=== PATIENT | male | born 1960 | race Caucasian/White ===

== ENCOUNTER 2017-02-27 10:20 | Day surgery (SDC) | payer BC ==
[2017-02-25 17:24] LABS: BASOPHILS 0.5 %; BASOPHILS ABSOLUTE 0.04 10/3/uL (0.0-0.16); EOSINOPHILS 1.3 %; HEMATOCRIT 45.7 % (40.0-51.0); HEMOGLOBIN 15.7 g/dL (13.6-17.8); IMMATURE GRANULOCYTES 0.3 %; IMMATURE GRANULOCYTES ABSOLUTE 0.02 10/3/uL (0.0-0.11); LYMPHOCYTES 28.3 %; LYMPHOCYTES ABSOLUTE 2.19 10/3/uL (0.67-4.30); MEAN CORPUS HGB CONC 34.4 g/dL (32.0-36.0); MEAN CORPUSCULAR VOLUME 93.3 fL (80-100); MEAN PLATELET VOLUME 9.4 fL (9.2-13.0); MONOCYTES 8.7 %; MONOCYTES ABSOLUTE 0.67 10/3/uL (0.21-1.20); NEUTROPHILS 60.9 %; NEUTROPHILS ABSOLUTE 4.72 10/3/uL (2.02-8.40); PLATELET COUNT 247 10/3/uL (150-400); RBC DISTRIBUTION WIDTH 13.2 % (12.0-16.0); WHITE BLOOD CELLS 7.7 10/3/uL (4.5-10.5)
[2017-02-25 17:25] LABS: MANUAL DIFF NO %
[2017-02-25 17:40] LABS: A/G RATIO 1.2 (0.7-1.9); ALKALINE PHOSPHATASE 62 U/L (45-117); BUN (BLOOD UREA NITROGEN) 15 MG/DL (6-23); CHLORIDE, SERUM 104 MMOL/L (96-112); CO2 (CARBON DIOXIDE) 28 MMOL/L (24-34); CREATININE 0.86 MG/DL (0.70-1.30); GFR AFRICAN AMERICAN 113 ML/MIN (>=60); GFR NON AFRICAN AMERICAN 98 ML/MIN (>=60); GLOBULIN 3.3 G/DL (2.5-4.1); GLUCOSE, SERUM 137 MG/DL (60-99); POTASSIUM, SERUM 4.3 MMOL/L (3.5-5.3); SGOT(AST) 23 U/L (5-40); SGPT(ALT) 26 U/L (5-65); SODIUM, SERUM 139 MMOL/L (135-148); TOTAL BILIRUBIN 0.5 MG/DL (0-1.2); TOTAL PROTEIN 7.3 G/DL (6.0-8.5)
--- NOTE | ~2017-02-27 | OP ---
Record Of Operation [facility] [address] [place]. [address] NAME: YULIANA DOUGHERTY : 62 STATUS : [facility]#: [id number] AGE: 56 ADM/REG DATE : 02/27/17 MR#: [id number] REPORT SERV DATE: 02/27/17 DICTATED BY: INES WHITTINGTON III DATE: 02/27/17 REPORT STATUS : Draft TRANSCRIBED BY: MODL DATE: 02/27/17 DATE OF PROCEDURE: 02/27/2017 PREOPERATIVE DIAGNOSIS: Malignant melanoma of the right upper back. POSTOPERATIVE DIAGNOSIS: Malignant melanoma of the right upper back. PROCEDURE: Wide local resection of malignant melanoma of right upper back with primary closure of wound. SURGEON: Ines Whittington M.D. ANESTHESIA: General with intubation. COMPLICATIONS: None. ESTIMATED BLOOD LOSS: Less than 5 mL. SPECIMENS: Malignant melanoma from right upper back including skin, subcutaneous tissue, and fascia. DRAINS: None. LAP AND SPONGE COUNT: Correct x3. BRIEF HISTORY: This 56-year-old male was recently found to have a malignant melanoma of the right upper back over the right scapula. This lesion was about 0.17 to 0.18 mm in thickness. It was felt that wide local resection of this malignancy was indicated. This procedure, the risks, benefits, and alternatives, including not limited to the risk for bleeding, infection, pain, swelling, scarring, deformity to the area, seroma formation, hematoma formation, wound dehiscence, nerve injury, chronic paresthesias, pain, numbness, neuralgia or neuroma, nerve injuries with muscle weakness or paralysis in the muscles of upper back or shoulder secondary to spinal accessory nerve injury and unforeseen complications including deep venous thrombosis, pulmonary embolus, myocardial infarction, stroke, pneumonia, and , were fully explained to the patient prior to surgery. The expected length of recovery was explained. The patient had questions, which were answered. He fully understood the risks and agreed to surgery as planned. DESCRIPTION OF PROCEDURE: After being properly identified and after discussing the risks of surgery with him again in the preoperative area, and after identifying the lesion with him in the preoperative area, the patient was taken to the operating room and placed in supine position on a stretcher adjacent to the operating room table. General anesthesia was administered and he was intubated without difficulty. He was then carefully rolled into the prone position on the operating room table. This was done very carefully and meticulously. Great care was taken to pad his extremities and torso appropriately. The upper back and neck areas were prepped and draped sterilely in the usual fashion. After an appropriate Record Of Operation [facility] [address] [place]. [address] NAME: YULIANA DOUGHERTY : 62 STATUS : [facility]#: [id number] AGE: 56 ADM/REG DATE : 02/27/17 MR#: [id number] REPORT SERV DATE: 02/27/17 DICTATED BY: INES WHITTINGTON III DATE: 02/27/17 REPORT STATUS : Draft TRANSCRIBED BY: PATTI DATE: 02/27/17 "time-out" per [employer] standards, an elliptical shaped vertically oriented incision was made, centered around the melanoma. This incision was made so as to have at least a 2 cm margin around the entire periphery or circumference of the lesion. The incision was continued down to the fascia. The entire block of tissue consisting of skin and subcutaneous tissue and fascia was excised carefully. At no point, a neurovascular structures encountered or injured. In particular, the spinal accessory nerve was not encountered. The specimen was oriented with sutures and sent for permanent pathology. Using sharp dissection, the skin and subcutaneous tissue around the entire periphery of the defect was mobilized so as to allow for closure. Hemostasis was assured. The subcutaneous tissue was closed with interrupted 2-0 Vicryl sutures. The skin was closed with interrupted 2-0 Prolene sutures. The incision was injected with 0.5% Marcaine. Dressings were applied. Anesthesia was reversed. The patient was taken to the recovery room in a stable condition. He tolerated the procedure well. His family was informed results of surgery. The patient was discharged when stable and comfortable. His family was advised to keep his wound clean and dry for 48 hours, that he should not drive for three to four days after surgery or while using narcotics, and that he should resume his usual medications. He was asked to return in two weeks for followup or sooner if any fever, chills, wound drainage, or other problems prior to that time. He was given a prescription for Percocet 7.5 one t.i.d., #12, as needed for pain, which he was advised not to use while driving. RHJ/MODL Ines Whittington III, M.D. / [id number] CC: Selwyn Miller III, M.D.
--- NOTE | ~2017-02-27 | PREOPHP ---
PreOp History and Physical [address] [place]. [address] NAME: YULIANA DOUGHERTY : 62 STATUS : [facility]#: [id number] AGE: 56 ADM/REG DATE : 02/27/17 MR#: [id number] REPORT SERV DATE: 03/03/17 DICTATED BY: INES WHITTINGTON III DATE: 02/18/17 REPORT STATUS : Draft TRANSCRIBED BY: PATTI DATE: 02/18/17 HISTORY OF PRESENT ILLNESS: This 56-year-old male comes to the operating room for wide local resection of malignant melanoma of the right upper back. The patient had a pigmented cutaneous lesion on his right upper back which were present for many years. Recently, it had increased in size and change in color. It was biopsied and found to be a 0.17 mm thickness malignant melanoma. The patient comes now for wide local resection of this malignancy. PAST MEDICAL HISTORY: 1. Diabetes mellitus. 2. Coronary artery disease. 3. History of coronary artery stent placement. 4. Obesity. MEDICATIONS: Simvastatin, metoprolol, Depakote, lisinopril, gabapentin, insulin. SOCIAL HISTORY: The patient has a previous tobacco use. He has no history of alcohol use. ALLERGIES: NONE. FAMILY HISTORY: Unremarkable. REVIEW OF SYSTEMS: The patient's 14-point review of systems otherwise unremarkable. OBJECTIVE/PHYSICAL EXAMINATION: GENERAL: This is a large obese male, in no acute distress. He is alert and oriented x3. VITAL SIGNS: Blood pressure 122/77, pulse 77, temperature 97.7. HEENT: Unremarkable. NECK: Unremarkable. No adenopathy. NEURO: Cranial II to XII are normal. LUNGS: Clear. CARDIAC: Normal. ABDOMEN: Soft, nontender. EXTREMITIES: Normal. No edema. BACK: Axilla normal with no adenopathy. Supraclavicular area is normal with no adenopathy. Over the right upper back, the patient has an eschar which is about 2 cm long, where the lesion was removed. ASSESSMENT: 1. A 56-year-old male with biopsy-proven malignant melanoma of the right upper back, 0.17 mm in thickness, Jose J's level 2. 2. Diabetes mellitus. 3. Coronary artery disease. 4. History of coronary artery stent placement. 5. Obesity. PreOp History and Physical [address] [place]. [address] NAME: YULIANA DOUGHERTY : 62 STATUS : [facility]#: [id number] AGE: 56 ADM/REG DATE : 02/27/17 MR#: [id number] REPORT SERV DATE: 03/03/17 DICTATED BY: INES WHITTINGTON III DATE: 02/18/17 REPORT STATUS : Draft TRANSCRIBED BY: PATTI DATE: 02/18/17 PLAN: The patient comes to the operating room now for wide local resection of this malignancy. This procedure, the risks, benefits, and alternatives, including not limited to the risk for bleeding, infection, pain, swelling, scarring, deformity to the area, seroma formation, hematoma formation, wound failure, wound dehiscence, nerve injury, chronic paresthesias, pain, numbness, neuralgia or neuroma, nerve injury, muscle weakness or paralysis in muscles of upper back or shoulder, and unforeseen complications including deep venous thrombosis, pulmonary embolus, myocardial infarction, stroke, pneumonia, and , have been explained to the patient prior to surgery. His questions have been answered. He understands the risks and agrees to surgery as planned. SERGIO/PATTI Ines Whittington III, M.D. / [id number]
[~2017-02-27 10:20] MED LIST: ALEVE220 MG PO; ASA5GR PO; AVANDARYL PO; AVANDARYL1 TA3 PO; BUSPAR10 PO; CELEXA20 PO; DEPAKOTE PO; FORTAMET500 MG PO; GLUCOPHXR7 PO; GLUCPH PO; KLONO5 PO; METOPROLOL ER PO; NEUR600 PO; PAX10 PO; PRILO PO; PRIN5 PO; RESTORIL30 MG PO; TRESIBA SQ; XANAX1 MG PO; ZOCOR20 PO
== END 2017-02-27 16:38 | disposition home or self-care (01) ==
LOC: SDC 10:20
PROVIDERS: Surgery
PROC: 0JQQ0ZZ Repair Right Foot Subcutaneous Tissue and Fascia, Open Approach (ICD-10-PCS; 2017-02-27)
PROC: 0HB6XZZ Excision of Back Skin, External Approach (ICD-10-PCS; principal; 2017-02-27 12:45)
DX: D03.59 Melanoma in situ of other part of trunk (principal); I25.10 Atherosclerotic heart disease of native coronary artery without angina pectoris; E66.9 Obesity, unspecified; J44.9 Chronic obstructive pulmonary disease, unspecified; E11.40 Type 2 diabetes mellitus with diabetic neuropathy, unspecified; M19.90 Unspecified osteoarthritis, unspecified site; I10 Essential (primary) hypertension; F32.9 Major depressive disorder, single episode, unspecified; E78.00 Pure hypercholesterolemia, unspecified; G47.33 Obstructive sleep apnea (adult) (pediatric); Z99.89 Dependence on other enabling machines and devices; Z88.5 Allergy status to narcotic agent; Z87.891 Personal history of nicotine dependence; Z79.4 Long term (current) use of insulin; Z79.899 Other long term (current) drug therapy; Z98.890 Other specified postprocedural states
CPT/HCPCS: 71020; 80053; 82962; 85025; 88305; 93005; A9270-GY; J0690; J2250; J2405; J2710; J3010